=== PATIENT | male | born 1965 | race Caucasian/White ===

== ENCOUNTER → 2016-12-16 | Outpatient (CLI) | payer BC ==
[~2016-12-16] MED LIST: NO MEDICATIONS
--- NOTE | ~2016-12-16 | MR32 ---
[facility] A Service of [facility] & [facility] / [facility] RADIOLOGY TEXT RESULTS PATIENT: CHAN SALMON LOCATION: [facility] : 65 UNIT #: [id number] AGE: [address]: Evangelina Titus MD SEX: M ORDER DR: [id number] [address] [address] [id number] O MR#: [id number] Acc #: [id number] NAME: CHAN SALMON : 1965 SEX: M STUDY DATE/TIME: 12/16/2016 11:51 UNIT: [facility] ROOM: STUDY DESCRIPTION: MR Cervical Wo Contrast Attending Physician: Evangelina Titus M.D. Referring Physician: Evangelina Titus M.D. Ordering Physician: Evangelina Titus M.D. Primary Care Physician: Evangelina Titus M.D. MRI CENTER REPORT This report is preliminary unless electronic signature is present. EXAM MRI of the cervical spine without contrast dated 12/16/2016 COMPARISON Plain film cervical spine dated 12/11/2016 HISTORY Increased neck pain with left upper extremity pain and radiculopathy. Increased muscle spasms for 2-3 months. FINDINGS Multisequence multiplanar imaging of the cervical spine was obtained without contrast. There is straightening of normal cervical curvature. Vertebral body heights and alignment are preserved. Degenerative disc disease is at multiple levels. Cord demonstrates normal expected course, caliber and signal. Imaged posterior fossa and craniovertebral junction are unremarkable. Pre and paravertebral soft tissues do not demonstrate any significant abnormality. C2-3: Concentric disc bulge with small central protrusion. No canal stenosis or neural foraminal narrowing. C3-4: Concentric disc bulge with no significant canal stenosis or neural foraminal narrowing. C4-5, C5-6: Concentric disc bulge with small central protrusion. Borderline size canal is seen without any significant neural foraminal narrowing. C6-7: Concentric disc bulge with suspicious mild inferior bilateral neural foraminal encroachment. No canal stenosis. C7-T1: Mild disc bulge without any significant canal stenosis or neural [facility] A Service of [facility] / [facility] RADIOLOGY TEXT RESULTS PATIENT: CHAN SALMON LOCATION: [facility] : 65 UNIT #: [id number] AGE: [address]: Evangelina Titus MD SEX: M ORDER DR: foraminal narrowing. IMPRESSION 1. Degenerative changes are noted at multiple levels as described above without any significant canal stenosis. 2. Central protrusions are noted from C2-3 to C5-6. 3. Cord is unremarkable. Dictated by... Salomón Shook M.D. THIS IS AN ELECTRONICALLY VERIFIED REPORT Salomón Shook M.D. at 12/18/2016 2:13 PM CPR/fox TD: 12/17/2016 11:49 JOB #: [id number] MRI CENTER REPORT Page 1 of 1
== END | disposition home or self-care (01) ==
LOC: SMRI 11:27
DX: M54.2 Cervicalgia (principal); M62.838 Other muscle spasm; G62.9 Polyneuropathy, unspecified; M47.892 Other spondylosis, cervical region; M50.21 Other cervical disc displacement, high cervical region; M50.222 Other cervical disc displacement at C5-C6 level
CPT/HCPCS: 72141